=== PATIENT | male | born 1985 | race Caucasian/White ===

== ENCOUNTER → 2016-06-23 | Outpatient (CLI) | payer BC ==
[2016-06-23 16:38] LABS: CHLORIDE,CL 104 mmol/L (98-110); SODIUM,NA 143 mmol/L (136-146)
== END ==
LOC: MW.CHRC 16:02
PROVIDERS: ATTEND Family Medicine
DX: J02.9 Acute pharyngitis, unspecified (principal); R30.0 Dysuria
CPT/HCPCS: 36415; 80053; 81001; 84439; 84443; 85025; 86308; 87081; 87880

== ENCOUNTER → 2016-08-24 | Outpatient (CLI) | payer BC ==
--- NOTE | 2016-08-25 09:07 | CR ---
EXAMINATION: Left hand HISTORY: Pain COMPARISON: None TECHNIQUE: 2 views FINDINGS/IMPRESSION: There is no acute osseous abnormality, dislocation, or fracture. Bone mineraliz ation and joint spaces appear normal. Tiny well-corticated ossific density projects anterior to the wrist on the lateral film, possibly an old injury.
== END ==
LOC: MW.CHRC 15:52
PROVIDERS: ATTEND Family Medicine
DX: M79.645 Pain in left finger(s) (principal)
CPT/HCPCS: 73120-26-LT; 73120-LT

== ENCOUNTER 2017-04-25 23:02 | Day surgery (SDC) | payer BC ==
[2017-04-25] MEDS ORDERED: Sodium Chloride 0.9% 2.5 ML Syringe FLUSH PRN (23:18)
[2017-04-25] MEDS ORDERED: Ketorolac 30 MG/ML SDV IVPUSH ONE (23:18)
[2017-04-25] MEDS ORDERED: Sodium Chloride 0.9% 10 ML Syringe FLUSH PRN (23:18)
[2017-04-25] MEDS ORDERED: Ondansetron 4 MG/2 ML SDV IVPUSH ONE (23:18)
[2017-04-25] MEDS ORDERED: Sodium Chloride 0.9% 1,000 ML IV ONE (23:18)
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
[2017-04-26 00:02] LABS: CHLORIDE,CL 107 mmol/L (98-110); SODIUM,NA 144 mmol/L (136-146)
[2017-04-26] MEDS ORDERED: Iopamidol 755 Mg/ML 100 ML Bottle IVPUSH ONE (00:38)
[2017-04-26] MEDS ORDERED: Lactated Ringers 1,000 ML IV SCH ×2 (01:00→02:45)
[2017-04-26] MEDS ORDERED: cefOXitin 2 GM in Premix Bag 1 BAG IV ONE (01:25)
--- NOTE | 2017-04-26 01:40 | PCM.SN ---
- Free Text/Narrative Note: see dict [id number]; pt seen, chart reviewed; acute appendicitis, now for surg, r/b / dw pt re bleeding/infection/abd abscess/damage to nearby organs; pt concurs proceed w surg
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
[2017-04-26] MEDS ORDERED: Bupivacaine 25%/EPINEPHrine/PF 30 ML ONE (02:08)
[2017-04-26] MEDS ORDERED: Midazolam 1 MG/ML 2 ML SDV ONE (02:10)
[2017-04-26] MEDS ORDERED: Lidocaine 2% 5 ML SDV ONE ×2 (02:10)
[2017-04-26] MEDS ORDERED: Rocuronium 10 MG/ML 10 ML Syringe ONE ×2 (02:10→02:19)
[2017-04-26] MEDS ORDERED: Dexamethasone 4 MG/ML 5 ML MDV ONE ×2 (02:10)
[2017-04-26] MEDS ORDERED: Propofol 200 MG/20 ML SDV ONE ×2 (02:10→03:23)
[2017-04-26] MEDS ORDERED: Ondansetron 4 MG/2 ML SDV ONE (02:10)
[2017-04-26] MEDS ORDERED: Ketorolac 30 MG/ML SDV ONE ×2 (02:10)
[2017-04-26] MEDS ORDERED: Atropine 0.4 MG/ML SDV ONE ×2 (02:10)
[2017-04-26] MEDS ORDERED: fentaNYL 100 MCG/2 ML SDV ONE (02:10)
[2017-04-26] MEDS ORDERED: Acetaminophen/oxyCODONE 325-5 MG Tab PO PRN (02:43)
[2017-04-26] MEDS ORDERED: Ondansetron 4 MG Tab PO PRN (02:43)
--- NOTE | 2017-04-26 03:34 | PCM.OPNOTE ---
- General Post-Op/Procedure Note Date of Surgery/Procedure: 04/26/17 Operative Procedure(s): lap appendectomy Findings: appendix was interacting with surrounding organs and abd wall, and full of exudate cw appendicitis suppurativa; gross perforation not observed; [id number] Pre Op Diagnosis: acute appendicitis Post-Op Diagnosis: Same Anesthesia Technique: General ET Tube Primary Surgeon: Colt Cramer Pathology: sent Complications: None Condition: Fair
[2017-04-26] MEDS ORDERED: fentaNYL 100 MCG/2 ML SDV IVPUSH PRN (03:51)
--- NOTE | 2017-04-26 03:54 | PCM48HPAN ---
Post Anesthesia Note - EVALUATION WITHIN 48HRS OF ANESTHETIC Vital Signs in Normal Range: Yes Patient Participated in Evaluation: Yes Respiratory Function Stable: Yes Airway Patent: Yes Cardiovascular Function Stable: Yes Hydration Status Stable: Yes Pain Control Satisfactory: Yes Nausea and Vomiting Control Satisfactory: Yes Mental Status Recovered: Yes - COMMENTS/OBSERVATIONS Free Text/Narrative:: awake, VSS, no complaints at this time.
--- NOTE | 2017-04-26 03:59 | OR ---
SURGEON: Colt Cramer MD DATE OF PROCEDURE: 04/26/2017 PREOPERATIVE DIAGNOSIS: Acute appendicitis. POSTOPERATIVE DIAGNOSIS: Acute appendicitis. PROCEDURE PERFORMED: Laparoscopic appendectomy. COMPLICATIONS: None. FINDINGS: The appendix is loosely interacting in the abdominal wall suggests acute situation and full of exudate and consistent with appendicitis suppurativa. No gross perforation observed. PROCEDURE IN DETAIL: The patient was taken to the operating room and placed in the supine position. Following induction of general endotracheal anesthesia, the patient's abdomen was prepped and draped in the sterile fashion. A time-out has been called. The patient was identified. The procedure was identified. The antibiotics were identified. The procedure then proceeded. The abdomen was prepped and draped in a standard fashion. After assessment of appropriate landmarks, a 12 millimeter trocar was inserted supraumbilically using Optiview and pneumoperitoneum was then achieved. This was followed with placement of 5 millimeter port in the right upper quadrant and another 5 millimeter port infraumbilically. The camera was inserted supraumbilical site and two laparoscopic Holcomb retractors were then inserted through the other two sites. Following the cecum, the appendix was located. The appendix was then lifted up, and using a GI stapler the appendix was amputated at the base. And using the GI stapler, the mesoappendix was then amputated. The appendix was retrieved by an endoscopic bag and sent for pathologist. This was then followed by re-insertion of the camera to examine the staple line and hemostasis. The trocars were then removed. The umbilical site was closed with 2-0 Vicryl deep stitch and 4 -0 Vicryl and Dermabond; the other 2 5 mm port sites were closed with 4-0 Vicryl and Dermabond. The patient was then awakened, extubated, and transferred to the recovery room in hemodynamically stable condition. Prior to closing, sponge count and instrument count was correct. Dr. Cramer was present throughout the whole procedure. As always, thank you for the kind referral. INTRAOPERATIVE FINDINGS: As dictated above. ALEX / ZOE /[id number]
--- NOTE | 2017-04-26 04:02 | HP ---
DATE OF : 1985 PRIMARY CARE PHYSICIAN: None PCP This is a consult from Dr. Halima Castillo from emergency room. CONCERNING QUESTION: Acute appendicitis. HISTORY OF PRESENT ILLNESS: The patient is a 31-year-old gentleman, complaining of a 12-hour history of acute onset of periumbilical pain, subsequently migrated to the right lower quadrant, sought help in the emergency room. CAT scan shows acute appendicitis. No perforation or abscess. Surgery was then consulted. Currently, the patient is comfortable and lying in stretcher, playing computer game. Denied prior episode and denied exaggerate pain when driving the car into the emergency room. PAST MEDICAL HISTORY: Significant for no diabetes, OR, CVA, or hypertension. PAST SURGICAL HISTORY: No abdominal surgery. ALLERGIES: Please refer to nursing for details. MEDICATIONS: Please refer to nursing for details. REVIEW OF SYSTEMS: Same as history of present illness. PHYSICAL EXAMINATION: GENERAL: Very pleasant, well mannered gentleman, in no acute distress and appropriate for his age. HEENT: Normocephalic and atraumatic. Sclerae anicteric. LUNGS: Clear to auscultation. HEART: Regular rate and rhythm. ABDOMEN: Soft, nondistended. No pulsating tender midline abdominal structure. Exquisite tenderness in the right lower quadrant. No rebound tenderness. No surgical scar. No hernia. VITAL SIGNS: Afebrile. LABORATORY DATA: Upon consultation; white count of 12.7, H and H are 15 and 43, platelet is 247, potassium is 4.0, BUN is 9, creatinine is 0.7. UA; no signs or symptoms of UTI. The patient is seeing Dr. De Luna as the primary care provider. CAT scan revealed dilated appendix up to 12 mm. No abscess or free air. IMPRESSION: Examination, clinical history, and imaging study consistent with acute appendicitis. The patient would benefit from appendectomy. In a timely manner, we will offer the patient laparoscopic versus open appendectomy. Risks and benefits were discussed with the patient including bleeding, infection, and damage to nearby organs. If abscess is perforated, we will need to have the wound remain open and have a ALEXANDRE place, and the patient concurred to proceed as planned. We will start with IV fluid lactated Ringer's 150 and Mefoxin 2 g IV and proceed as surgery planned. ALEX / ZOE /[id number]
--- NOTE | 2017-04-26 07:33 | PCM48HPAN ---
Post Anesthesia Note - EVALUATION WITHIN 48HRS OF ANESTHETIC Vital Signs in Normal Range: Yes Patient Participated in Evaluation: Yes Respiratory Function Stable: Yes Airway Patent: Yes Cardiovascular Function Stable: Yes Hydration Status Stable: Yes Pain Control Satisfactory: Yes Nausea and Vomiting Control Satisfactory: Yes Mental Status Recovered: Yes
--- NOTE | 2017-04-26 11:28 | CT ---
EXAM DATE: 04/26/17 PATIENT'S AGE: 31 Patient: TOMASA AHN Facility: [place], [place] Site . Site : 1985 Study: CT Abdomen/Pelvis With Contrast [id number]/10/2018 12:37:23 AM Ordering Physician: Anna Varghese Final Report: INDICATION: RLQ pain x 1 day w/nausea. CT ABDOMEN AND PELVIS WITH CONTRAST TECHNIQUE: Multidetector CT imaging was performed through the abdomen and pelvis following intravenous contrast administration using 100 mL Isovue 370. Coronal and sagittal reconstructions were generated. COMPARISON: None. FINDINGS: Lower chest: Lung bases are clear. Liver: Within normal limits. Gallbladder and bile ducts: No gallbladder wall thickening or calcified gallstones. No biliary dilation identified. Pancreas: Unremarkable. Spleen: Normal. Adrenals: No nodules or masses. Kidneys, ureters, and urinary bladder: No renal masses or hydronephrosis. No bladder mass or definite wall thickening. Gastrointestinal tract: Normal caliber bowel without wall thickening. The appendix is abnormally enlarged, measuring up to 12 millimeters in diameter, and has diffuse wall thickening with periappendiceal fat stranding, consistent with appendicitis. Vascular structures: Normal for age. Peritoneum: No free air, abscess, or significant free fluid. Lymph nodes: No pathologically enlarged nodes identified. Reproductive organs: No pelvic masses. Bones: Normal for age. IMPRESSION: Acute appendicitis. No evidence of appendiceal perforation or abscess. Results were called to Dr. Castillo at 12:45 a.m. on 04/26/2017. TAWANNA WHITING MD [employer] Dictated by Adam Whiting MD @ 04/26/2017 12:48:08 AM Dictated by: Adam Whiting MD @ 04/26/2017 00:48:52 (Electronic Signature) Report Signed by Proxy. [facility]
[2017-04-26 13:51] VITALS: BP 109/62
== END 2017-04-26 14:00 | disposition home or self-care (01) ==
LOC: MW.ED 23:02 → MW.SDS 04-26 01:02 → MW.MS 04-26 02:23 → MW.SDS 04-26 14:00
PROVIDERS: ATTEND Surgery
DX: K35.80 Unspecified acute appendicitis (principal)
CPT/HCPCS: 36415; 44970; 74177; 80053; 81001; 85025; 96361; 96365; 96368; 96375; 99285; C1776; J0461; J1100; J1885; J2250; J2405; J3010; J7040; J7120; Q9967; 00840; 88304; J2704

== ENCOUNTER 2020-03-17 04:04 | Emergency (ER) | payer OTHER ==
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
--- NOTE | 2020-03-17 05:03 | CR ---
Indication: Injury, pain Technique: Three views of the left knee Comparison: None Findings: There is no fracture or dislocation. There is no appreciable joint effusion. The surrounding soft tissues are unremarkable. Impression: No acute abnormality. Dictated by Alice Burton MD @ Mar 17 2020 4:59AM Signed by Dr. Alice Burton @ Mar 17 2020 5:00AM
[2020-03-17 06:03] VITALS: BP 134/67; PULSE 60
== END 2020-03-17 05:55 | disposition home or self-care (01) ==
LOC: MW.ED 04:04
DX: M79.672 Pain in left foot (principal)
CPT/HCPCS: 73562-26-LT; 73562-LT; 99283

== ENCOUNTER 2020-04-01 11:11 | Day surgery (SDC) | payer OTHER ==
[~2020-04-01 11:11] MED LIST: Lactated Ringers 1,000 ML IV SCH; ceFAZolin 2 GM in Premix Bag 1 BAG IV SCH
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
[2020-04-01] MEDS ORDERED: Midazolam 1 MG/ML 2 ML SDV ONE (14:42)
[2020-04-01] MEDS ORDERED: Propofol 200 MG/20 ML SDV ONE (14:42)
[2020-04-01] MEDS ORDERED: fentaNYL 100 MCG/2 ML SDV ONE ×2 (14:42→17:14)
[2020-04-01] MEDS ORDERED: Ondansetron 4 MG/2 ML SDV ONE (14:45)
[2020-04-01] MEDS ORDERED: Lidocaine 2% 5 ML SDV ONE (14:45)
[2020-04-01] MEDS ORDERED: Glycopyrrolate 0.2 MG/ML SDV ONE (14:45)
[2020-04-01] MEDS ORDERED: Ketorolac 30 MG/ML SDV ONE (14:45)
[2020-04-01] MEDS ORDERED: fentaNYL 100 MCG/2 ML SDV IVPUSH PRN (15:17)
[2020-04-01] MEDS ORDERED: Acetaminophen 1,000 MG in Premix Bag 1 BAG IV PRN (15:17)
[2020-04-01] MEDS ORDERED: Bupivacaine 25%/EPINEPHrine/PF 30 ML ONE (16:11)
[2020-04-01] MEDS ORDERED: Sodium Chloride 0.9% 20 ML ONE (16:25)
[2020-04-01] MEDS ORDERED: ceFAZolin 1 GM Vial ONE (16:25)
--- NOTE | 2020-04-01 17:31 | PCM.OPNOTE ---
- General Post-Op/Procedure Note Date of Surgery/Procedure: 04/01/20 Operative Procedure(s): left knee arthroscopy. partial medial menisectomy Pre Op Diagnosis: left knee medial bucket handle meniscus tear Post-Op Diagnosis: Same Anesthesia Technique: General LMA Primary Surgeon: Morales Jorgensen Mammography Technologist: Anyi Boyle EBL in mLs: 5 Complications: None Condition: Good
[2020-04-01 18:34] VITALS: BP 140/74
[2020-04-01] MEDS ORDERED: Acetaminophen/oxyCODONE 325-5 MG Tab PO ONE (18:40)
[2020-04-01] MEDS ORDERED: Acetaminophen/oxyCODONE 325-5 MG Tab ONE (18:42)
--- NOTE | 2020-04-01 19:00 | PCM.POSTAN ---
POST ANESTHESIA ASSESSMENT - MENTAL STATUS Mental Status: Alert - VITAL SIGNS Vital Signs: Last Vital Signs Temp 36.6 C 04/01/20 18:18 Pulse 51 L 04/01/20 18:18 Resp 14 04/01/20 18:18 BP 140/74 04/01/20 18:18 Pulse Ox 98 04/01/20 18:18 - RESPIRATORY Respiratory Status: Respiratory Rate WNL - CARDIOVASCULAR CV Status: Pulse Rate WNL - GASTROINTESTINAL GI Status: No Symptoms - POST OP HYDRATION Hydration Status: Adequate & Stable
[2020-04-01 19:03] VITALS: PULSE 50
--- NOTE | 2020-04-01 20:02 | OR ---
SURGEON: Morales Jorgensen DATE OF PROCEDURE: 04/01/2020 PREOPERATIVE DIAGNOSIS: Left knee medial meniscus bucket-handle tear. POSTOPERATIVE DIAGNOSIS: Left knee medial meniscus bucket-handle tear. PROCEDURE: Left knee arthroscopy with partial medial meniscectomy. PRIMARY SURGEON: Morales Jorgensen DO SUPERVISOR CLAM BED: FERDINAND Christianson ROLE OF SUPERVISOR CLAM BED: Nurse practitioner, FERDINAND Christianson, played an essential role in assisting in this case, helping to position the patient, retract structures as needed, as well as suturing and cutting sutures as indicated. Her presence improved patient's safety and decreased operative time. ANESTHESIA: General LMA. FLUID: Lactated Ringer's solution. ESTIMATED BLOOD LOSS: 5 mL. COMPLICATIONS: None. SPECIMEN: None. DISCHARGE DISPOSITION: Stable to PACU. HISTORY AND INDICATIONS FOR THE PROCEDURE: The patient was seen preoperatively in clinic. Preoperative imaging confirmed the above-mentioned diagnosis. Risks and goals of the procedure were explained to the patient and informed consent was obtained. DETAILS OF PROCEDURE: The patient was seen preoperatively by myself and the Anesthesia staff in the preoperative holding where the operative site was marked. He was brought to the operative suite by Anesthesia staff where general anesthesia was administered. The right lower extremity was placed into a stirrup. The left lower extremity was placed into a leg cueva. The left thigh had a well-padded tourniquet placed. The left lower extremity was then prepped and draped in a sterile manner. Time-out was called identifying the correct patient, the correct procedure, the correct site, and that antibiotics had been given within appropriate period of time. A lateral portal was first made. A trocar was inserted followed by the camera. The joint was insufflated to 30 mmHg. The patellofemoral compartment, lateral gutter, and medial gutter were all normal. The lateral compartment was normal. The medial compartment had an obvious bucket-handle meniscus tear extending from approximately its midpoint posterior that had flipped forward. I then used scissors to cut the anterior most attachment and then used a grasper to evaluate it. During this process, it was obvious that this had previously had a meniscus repair performed. I then used scissors and removed it from the posterior root. I then shaved up any remnant left from the posterior root and then shaved to debride the remainder of the posterior portion of the anterior normal medial meniscus. I then stabilized this area with the cautery unit and examined the remainder of the joint. There was a grade 1 to 2 chondromalacia over the medial plateau and medial femoral condyle. I then removed my instruments from the joint. We then closed with 3-0 horizontal mattress nylon sutures and then injected 0.25% local with epinephrine. We then placed a Betadine-soaked Adaptic over the wounds followed by fluffs, followed by Nitish wrap. The patient was then allowed to awaken from general anesthesia and taken to the PACU in stable condition. [id number] / MODL /[id number]
--- NOTE | 2020-04-02 06:25 | PCM48HPAN ---
Post Anesthesia Note - EVALUATION WITHIN 48HRS OF ANESTHETIC Vital Signs in Normal Range: Yes Patient Participated in Evaluation: Yes Respiratory Function Stable: Yes Airway Patent: Yes Cardiovascular Function Stable: Yes Hydration Status Stable: Yes Pain Control Satisfactory: Yes Nausea and Vomiting Control Satisfactory: Yes Mental Status Recovered: Yes Vital Signs: Last Vital Signs Temp 36.6 C 04/01/20 18:18 Pulse 50 L 04/01/20 18:58 Resp 14 04/01/20 18:58 BP 140/74 04/01/20 18:58 Pulse Ox 97 04/01/20 18:58
== END 2020-04-01 19:25 | disposition home or self-care (01) ==
LOC: MW.SDS 11:11
PROVIDERS: ATTEND Orthopaedic Surgery
DX: S83.212A Bucket-handle tear of medial meniscus, current injury, left knee, initial encounter (principal); M94.262 Chondromalacia, left knee; J02.9 Acute pharyngitis, unspecified; R30.0 Dysuria; R53.83 Other fatigue; Z98.890 Other specified postprocedural states; Z79.899 Other long term (current) drug therapy; Z87.891 Personal history of nicotine dependence
CPT/HCPCS: 29881; A9270; J0131; J0690; J1885; J2001; J2250; J2405; J2704; J3010; J3490; J7120; 01402